=== PATIENT | male | born 1960 | race Caucasian/White ===

== ENCOUNTER → 2021-05-20 | Outpatient (CLI) | payer OTHER, SELFPAY | END | disposition home or self-care (01) | PROVIDERS: PCP Family Medicine; Visit Provider Family Medicine | DX: U07.1 COVID-19 (principal) | CPT/HCPCS: 87635; U0005; U0003 ==

== ENCOUNTER → 2024-07-08 | Outpatient (CLI) | payer SELFPAY ==
--- NOTE | 2024-07-08 12:07 | RAD_ITS ---
EXAM: XR LUMBOSACRAL SPINE, 4 OR 5 VIEWS CLINICAL INDICATION: segmental and somatic dysfunction in the lumbar region, or lower pain TECHNIQUE: Frontal, lateral and bilateral oblique views of the lumbar spine. COMPARISON: No relevant prior studies available. FINDINGS: VERTEBRAE: Multilevel endplate osteophytosis and facet arthrosis. [place] right lumbar curvature may be in part positional. Likely prior laminectomy at L4 with fused bone graft in the lateral gutters. T11 vertebral body height loss suggesting a chronic compression deformity. No definite acute fracture. No spondylolisthesis. 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 DISC SPACES: Multilevel intervertebral disc height loss. GASTROINTESTINAL TRACT: Normal as visualized. Included bowel gas pattern is non-obstructive. RAD/L/S Spine Min 4 Views IMPRESSION: T11 vertebral body height loss suggesting a chronic compression deformity. No definite acute fracture. Postoperative and degenerative changes as above. Electronically Signed: Lencho Harris DO at 21:41 EST ,
--- NOTE | 2024-07-08 12:19 | RAD_ITS ---
EXAM: XR LEFT WRIST COMPLETE, 3 OR MORE VIEWS CLINICAL INDICATION: FALL pain. TECHNIQUE: Frontal, lateral and oblique views of the left wrist. COMPARISON: No relevant prior studies available. FINDINGS: BONES/JOINTS: Well-corticated ossicles associated with the basal joint of the thumb with marginal osteophytes and joint space narrowing. 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 No acute fracture. No subluxation. Normal alignment. SOFT TISSUES: Mild soft tissue swelling. No radiopaque foreign body. RAD/Wrist min 3 Views IMPRESSION: Mild soft tissue swelling. No definite acute osseous abnormalities. 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 Electronically Signed: Lencho Harris DO at 21:40 EST ,
== END | disposition home or self-care (01) ==
PROVIDERS: PCP Hospitalist; Referring Provider Chiropractor Orthopedic; Visit Provider Chiropractor Orthopedic
DX: M99.03 Segmental and somatic dysfunction of lumbar region (principal)
CPT/HCPCS: 72110; 73110